=== PATIENT | female | born 1995 | race Caucasian/White ===

== ENCOUNTER 2017-07-05 12:38 | Outpatient (CLI) | payer BC ==
--- NOTE | 2017-07-05 14:19 | ULT ---
LEFT BREAST ULTRASOUND: HISTORY: Pain. COMPARISON: None. FINDINGS: Targeted ultrasound of the painful area of the left breast from 12-3 o'clock was performed. There a re islands of fibroglandular tissue. There is also a simple cyst at 12 o'clock, 4 cm from the nippl e. IMPRESSION: BI-RADS 2: benign findings. POS: [facility]
== END 2017-07-05 12:39 | disposition home or self-care (01) ==
LOC: ULT 12:38
PROVIDERS: ATTEND Physician Assistant
DX: N64.4 Mastodynia (principal)